=== PATIENT | female | born 1990 | race African-American/Black ===

== ENCOUNTER 2022-12-19 13:47 | Emergency (ER) | payer OTHER ==
[2022-12-19 14:00] VITALS: BP 114/74; PULSE 65; RESP 17; TEMP 98.1; BMI 43.2
[2022-12-19] MEDS ORDERED: DOXYCYCLINE HYCLATE 100 MG CAPSULE PO ONE ×2 (14:44→14:49)
[2022-12-19] MEDS ORDERED: KETOROLAC TROMETHAMINE 30 MG/1 ML VIAL IM ONE (14:45)
[2022-12-19] MEDS ORDERED: KETOROLAC TROMETHAMINE 60 MG/2 ML VIAL ONE (14:49)
[2022-12-19] MEDS ORDERED: traMADol HCL 50 MG TABLET PO ONE (15:12)
[2022-12-19] MEDS ORDERED: traMADol HCL 50 MG TABLET ONE (15:20)
== END 2022-12-19 15:50 | disposition home or self-care (01) ==
LOC: JERFT 13:47
PROC: 3E0233Z Introduction of Anti-inflammatory into Muscle, Percutaneous Approach (ICD-10-PCS; principal; 2022-12-19)
DX: K08.89 Other specified disorders of teeth and supporting structures (principal); R22.1 Localized swelling, mass and lump, neck; K04.7 Periapical abscess without sinus; G44.209 Tension-type headache, unspecified, not intractable
CPT/HCPCS: 99284-25